=== PATIENT | male | born 1960 | race Caucasian/White ===

== ENCOUNTER → 2021-07-25 | Outpatient (CLI) | payer OTHER ==
--- NOTE | 2021-07-25 14:11 | US ---
EXAMINATION TYPE: US kidneys/renal and bladder DATE OF EXAM: 07/25/2021 COMPARISON: NONE CLINICAL HISTORY: R80.9 Proteinuria, unspecified. EXAM MEASUREMENTS: Right Kidney: 10.5x5.5x5.1 cm Left Kidney: 10.6x5.4x5.7 cm Right Kidney: wnl Left Kidney: Superior cyst =1.7x2.1x1.9cm Bladder: wnl Bilateral Jets seen: Yes IMPRESSION: 1. Left renal cyst
== END | disposition home or self-care (01) ==
LOC: RADUSWWP 12:45
PROVIDERS: ATTEND Internal Medicine
DX: N28.1 Cyst of kidney, acquired (principal)
CPT/HCPCS: 76770